=== PATIENT | male | born 1980 | race Caucasian/White ===

== ENCOUNTER 2019-01-20 08:03 | Emergency (ER) | payer OTHER ==
[2019-01-20] MEDS ORDERED: IBUPROFEN 800 MG TABLET PO ONE (09:58)
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
[2019-01-20 10:49] VITALS: BP 153/103
== END 2019-01-20 10:49 | disposition home or self-care (01) ==
LOC: ER 08:03
DX: S16.1XXA Strain of muscle, fascia and tendon at neck level, initial encounter (principal); M25.519 Pain in unspecified shoulder; V43.52XA Car driver injured in collision with other type car in traffic accident, initial encounter; F17.200 Nicotine dependence, unspecified, uncomplicated; F12.10 Cannabis abuse, uncomplicated; F25.9 Schizoaffective disorder, unspecified; Z79.899 Other long term (current) drug therapy
CPT/HCPCS: 99283

== ENCOUNTER 2019-03-14 18:08 | Emergency (ER) | payer OTHER ==
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
[2019-03-14 20:10] VITALS: BP 142/96
== END 2019-03-14 20:20 | disposition home or self-care (01) ==
LOC: ER 18:08
DX: B34.9 Viral infection, unspecified (principal); R11.2 Nausea with vomiting, unspecified; R19.7 Diarrhea, unspecified; F17.210 Nicotine dependence, cigarettes, uncomplicated
CPT/HCPCS: 99283; 99406